=== PATIENT | male | born 1940 | race Caucasian/White ===

== ENCOUNTER 2019-02-14 09:50 | Outpatient (CLI) ==
[2019-02-15] MEDS ORDERED: DABI75CA3 PO (17:22)
[2019-02-15] MEDS ORDERED: ATOR40TA78 PO (17:22)
[2019-02-15] MEDS ORDERED: RIVA20TA PO (18:36)
[2019-02-21] MEDS ORDERED: DOXY100T PO ×2 (09:35)
[2019-02-21] MEDS ORDERED: GUAI600T31 PO (09:35)
[2019-02-21] MEDS ORDERED: AMOX1TAB64 PO ×2 (09:35)
[2019-03-07] MEDS ORDERED: AMLO-150 PO (15:48)
[2019-03-07] MEDS ORDERED: LINE600T15 PO (15:48)
[2019-03-07] MEDS ORDERED: ERTA1VIA4 IV (15:48)
[2019-03-07] MEDS ORDERED: ERTA1VIA IV (15:48)
[2019-03-07] MEDS ORDERED: FERR-51 PO (15:48)
[2019-03-07] MEDS ORDERED: PRED20TA PO (15:48)
== END 2019-02-14 23:59 | disposition home or self-care (01) ==
LOC: CFH 09:50
PROVIDERS: ATTEND Internal Medicine Cardiovascular Disease
DX: I08.3 Combined rheumatic disorders of mitral, aortic and tricuspid valves (principal); I48.91 Unspecified atrial fibrillation; I25.810 Atherosclerosis of coronary artery bypass graft(s) without angina pectoris; Z87.891 Personal history of nicotine dependence
CPT/HCPCS: 93306

== ENCOUNTER 2019-03-10 13:06 | Emergency (ER) | payer MEDICARE ==
[~2019-03-10] VITALS: Ht 185.4 cm; Wt 75.5 kg
[~2019-03-10 13:06] MED LIST: AMLO-150 PO; AMOX1TAB64 PO; ATOR40TA78 PO; DABI75CA3 PO; DOXY100T PO; ERTA1VIA IV; ERTA1VIA4 IV; FERR-51 PO; GUAI600T31 PO; LINE600T15 PO; PRED20TA PO; RIVA20TA PO
[2019-03-10] MEDS ORDERED: SODIUM CHLORIDE 0.9% 1,000ML IVBOLUS ONE (13:30)
[2019-03-10] MEDS ORDERED: SODIUM CHLORIDE FLUSH 10ML SYR IVF ONE (13:30)
--- NOTE | 2019-03-10 13:33 | NUR ---
PT CAME CO OF FEELING LIGHT HEADED AND DIZZY. "THIS MORNING WHEN I WOKE UP I WAS REALLY LIGHT HEADED. MY BLOOD PRESSURE WAS REALLY LOW FOR THE FIRST 3 READINGS. FELT I WAS UNSTEADY ON MY FEEL AND BLOOD O2 WAS LOW". PT IS HOOKED UP TO SPINNING FRAME FIXER. IS BEDSIDE. BLANKET PROVIDED.
--- NOTE | 2019-03-10 13:35 | NUR ---
PT HAS PICC LINE IN RIGHT ARM AND HAS BEEN RECIEVING ABX FOR PNEUMONIA THROUGH PICC LINE.
[2019-03-10 14:04] LABS: ALANINE AMINOTRANSFERASE 139 U/L (12-78); ALBUMIN 2.8 g/dL (3.4-5.0); ANION GAP 6 mmol/L (5-15); CALCIUM 8.2 mg/dL (8.5-10.1); CHLORIDE 99 mmol/L (98-107); CREATININE 1.05 mg/dL (0.7-1.3)
[2019-03-10 14:07] LABS: ALKALINE PHOSPHATASE 204 U/L (45-117); BILIRUBIN,TOTAL 0.5 mg/dL (0.2-1.0); TOTAL PROTEIN 6.8 g/dL (6.4-8.2)
[2019-03-10 14:12] LABS: MEAN CORPUSCULAR HEMOGLOBIN 29.1 pg (27.5-34.5); MEAN CORPUSCULAR HGB CONC 32.1 g/dL (33.2-36.2); MEAN CORPUSCULAR VOLUME 90.8 fL (81-97); MEAN PLATELET VOLUME 6.8 fL (7.4-10.4); PLATELET COUNT 497 x10^3/uL (130-400); RED BLOOD COUNT 4.59 x10^6/uL (4.38-5.82); RED CELL DISTRIBUTION WIDTH 14.4 % (9.4-14.8)
[2019-03-10 14:13] LABS: BASOPHILS # (AUTO) 0.05 x10^3/uL (0-0.1); BASOPHILS % (AUTO) 0 % (0-1); EOSINOPHILS # (AUTO) 0.28 x10^3/uL (0-0.4); EOSINOPHILS % (AUTO) 2 % (1-7); LYMPHOCYTES # (AUTO) 1.06 x10^3/uL (1-3.4); LYMPHOCYTES % (AUTO) 6 % (22-44); MD SCAN; MONOCYTES # (AUTO) 0.48 x10^3/uL (0.2-0.8); MONOCYTES % (AUTO) 3 % (2-9); NEUTROPHILS # (AUTO) 16.81 x10^3/uL (1.8-6.8); NEUTROPHILS % (AUTO) 90 % (42-75)
[2019-03-10 14:32] VITALS: BP 109/65
== END 2019-03-10 15:35 | disposition home or self-care (01) ==
LOC: ED 13:48
DX: I95.9 Hypotension, unspecified (principal); I48.91 Unspecified atrial fibrillation; I25.10 Atherosclerotic heart disease of native coronary artery without angina pectoris; Z87.01 Personal history of pneumonia (recurrent)
CPT/HCPCS: 36415; 71045; 80053; 83605; 84145; 85025; 93005; 99284; J7030

== ENCOUNTER 2019-03-21 14:55 | Outpatient (CLI) | payer MEDICARE | END 2019-03-21 23:59 | disposition home or self-care (01) | LOC: CFH 14:55 | PROVIDERS: ATTEND Internal Medicine Infectious Disease | DX: J18.9 Pneumonia, unspecified organism (principal) | CPT/HCPCS: 71046 ==

== ENCOUNTER → 2020-07-27 | Outpatient (CLI) | payer MEDICARE ==
[~2020-07-27] MED LIST changes: +REGADENOSON 0.4 MG/5 ML SYRINGE ONE
== END | disposition home or self-care (01) ==
LOC: CFH 08:31
PROVIDERS: ATTEND Internal Medicine Cardiovascular Disease
DX: I21.09 ST elevation (STEMI) myocardial infarction involving other coronary artery of anterior wall (principal); I48.91 Unspecified atrial fibrillation; I25.10 Atherosclerotic heart disease of native coronary artery without angina pectoris
CPT/HCPCS: 78452; 93017; A9502; J2785